=== PATIENT | female | born 1955 | race Caucasian/White ===

== ENCOUNTER → 2016-07-02 | Outpatient (CLI) | payer OTHER ==
[~2016-07-02] MED LIST: ALEVE220 MG PO; DAILY VITE1 EAC1 PO; DIGOXIN250 MCG PO; FAMOTIDINE20 MG PO; FUROSEMIDE40 MG PO; HYDROCORTISONE10 MG PO; LISINOPRIL2.5 MG PO; LOPRESSOR50 MG PO; XARELTO20 MG PO
== END | disposition home or self-care (01) ==
LOC: EKG 12:39
DX: I42.0 Dilated cardiomyopathy (principal)
CPT/HCPCS: 93306

== ENCOUNTER → 2017-11-09 | Outpatient (CLI) | payer OTHER | END | disposition home or self-care (01) | LOC: RAD 13:44 | DX: E05.20 Thyrotoxicosis with toxic multinodular goiter without thyrotoxic crisis or storm (principal) | CPT/HCPCS: 76536 ==